=== PATIENT | female | born 1945 | race Two or more races ===

== ENCOUNTER 2025-08-19 03:37 | Emergency (ER) | payer OTHER ==
[~2025-08-19] VITALS: Ht 162.6 cm; Wt 65.3 kg
[2025-08-19 05:31] LABS: INR 1.02
[2025-08-19 05:35] LABS: ALT/SGPT 19 U/L (12-78); AST/SGOT 30 U/L (15-37); BILIRUBIN TOTAL 1.08 mg/dL (0.3-1.2); BUN CREA RATIO 13 (7.0-25.0); CREATININE SERUM 0.77 mg/dL (0.55-1.02); GFR 72.13; GLOBULINA 3.7 G/DL (2.4-3.5); GLUCOSE FASTING 112 mg/dL (65-100); OSMOLALITY SERUM 283 MOSM/KG (275-295)
[2025-08-19 05:47] LABS: LYMPH % 22.1 % (19.3-53.1); MEAN PLATELET VOLUME 13.40 fl (9.4-12.4); NEUT % 69.5 % (34.0-71.1); RED CELL DISTRIBUTION WIDTH 12.4 % (11.6-14.4)
[2025-08-19 05:48] LABS: BASO % 0.4 % (0.1-1.2); EOS # 0.06 (0.04-0.54); EOS % 0.9 % (0.7-7.0); LYMPH # 1.53 (1.18-3.74); MONO # 0.47 (0.24-0.82); MONO % 6.8 % (4.7-12.5); NEUT # 4.81 (1.56-6.13)
[2025-08-19 08:08] LABS: URINE APPEARANCE Clear; URINE BILIRRUBIN Negative (NEGATIVE); URINE BLOOD Negative; URINE COLOR Yellow; URINE GLUCOSE Negative (NEGATIVE); URINE KETONE Negative (NEGATIVE); URINE LEUKOCYTE Moderate; URINE NITRATE Negative; URINE PROTEIN Negative (NEGATIVE); URINE UROBILINOGEN 0.2 E.U./dl
[2025-08-19 08:09] LABS: URINE BACTERIA 74.3 uL (0.0-1933); URINE EPITHELIAL CELLS 11.0 uL (0.0-38.8); URINE RBC 4.6 uL (0.0-20.8); URINE WBC 34.6 uL (0.0-23.2)
[2025-08-19 08:40] LABS: URINE CAST 0.29 uL (0.0-1.40)
== END 2025-08-19 09:06 | disposition home or self-care (01) ==
LOC: ER 03:37
PROVIDERS: Physician Assistant Medical
DX: R55 Syncope and collapse (principal); Z88.8 Allergy status to other drugs, medicaments and biological substances